=== PATIENT | female | born 1980 | race Caucasian/White ===

== ENCOUNTER 2017-08-04 08:03 | Emergency (ER) | payer OTHER ==
[~2017-08-04] VITALS: Ht 162.6 cm; Wt 75.3 kg
[2017-08-04 08:08] VITALS: BP 126/80; Ht 162.6 cm; Wt 75.3 kg
== END 2017-08-04 08:53 | disposition home or self-care (01) ==
LOC: ED 08:03
DX: J02.9 Acute pharyngitis, unspecified (principal)